=== PATIENT | female | born 1985 ===

== ENCOUNTER 2016-12-04 12:45 | Emergency (ER) | payer OTHER ==
[2016-12-04 13:29] VITALS: BP 131/91
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
== END 2016-12-04 14:33 | disposition home or self-care (01) ==
LOC: UCEAST 12:45
DX: S06.0X0A Concussion without loss of consciousness, initial encounter (principal); S16.1XXA Strain of muscle, fascia and tendon at neck level, initial encounter; V43.52XA Car driver injured in collision with other type car in traffic accident, initial encounter; Y92.9 Unspecified place or not applicable
CPT/HCPCS: 99211; G0463